=== PATIENT | male | born 1995 | race African-American/Black ===

== ENCOUNTER 2017-09-04 13:23 | Emergency (ER) | payer OTHER ==
[~2017-09-04] VITALS: Ht 172.7 cm; Wt 100.0 kg
[2017-09-04] MEDS ORDERED: MUCI600T37 PO (13:33)
[2017-09-04] MEDS ORDERED: SUDA1TAB3 PO (13:33)
[2017-09-04] MEDS ORDERED: VENTAER IN (14:25)
[2017-09-04] MEDS ORDERED: ALLE180T33 PO (14:25)
[2017-09-04] MEDS ORDERED: PRED20TA PO (14:26)
[2017-09-04] MEDS ORDERED: ALBUTEROL SULFATE 2.5 MG/0.5 ML INH NEB SOLN NEB ONE (14:30)
--- NOTE | 2017-09-04 15:16 | REP ---
PA and lateral chest: There are no comparisons. The lung jaramillo are clear. The cardiac size is normal The celine, mediastinum, and bony thorax are unremarkable. Impression: Negative PA and lateral chest. Signed by Henrik Martin MD 09/04/2017 03:08 P
[2017-09-04 15:18] VITALS: BP 152/81
== END 2017-09-04 15:20 | disposition home or self-care (01) ==
LOC: M ED 13:23
DX: R06.2 Wheezing (principal)

== ENCOUNTER → 2017-11-15 | Outpatient (CLI) | payer OTHER ==
[~2017-11-15] MED LIST: METHACHOLINE KIT (J7674) INH
== END ==
LOC: M CARPUL 07:13
DX: R06.02 Shortness of breath (principal)
CPT/HCPCS: J7674